=== PATIENT | female | born 1940 | race Caucasian/White ===

== ENCOUNTER 2017-08-17 10:01 | Inpatient (IN) | payer OTHER, BC ==
[~2017-08-17] VITALS: Ht 154.9 cm; Wt 72.1 kg
[~2017-08-17 10:01] MED LIST: ACTOS30 MG; ACTOS30 MG PO; ASPIR 8181 M1 PO; ASPIR-LOW81 MG PO; ATENOLOL50 MG PO; AZOPT 1% O200 DROP/1 BOTH EYES; CYCLOBENZAPRINE10 MG PO; ENDOCET 5-3251 EACH PO; GLIMEPIRIDE1 MG PO; GLIPIZIDE PO; GLIPIZIDE XL5 MG PO; GLIPIZIDE5 MG PO; GLUCOPHAGE1000 MG PO; HYDROCHLOROTH12.5 M2 PO; HYDROCHLOROTHIA25 MG PO; HYDROCHLOROTHIA50 MG PO; JANUMET XR 50-1 EAC1 PO; LISINOPRIL20 MG PO; METFORMIN HCL500 MG PO; MICRO-K8 ME1 PO; POTASSIUM CHLOR8 ME2 PO; PRAVACHOL20 MG PO; PRAVACHOL40 MG PO; PRINIVIL10 MG PO; RELAFEN500 M1 PO; TENORMIN50 MG PO; TYLENOL EXTRA500 MG PO; XALATAN2.5 ML BOTH EYES; XANAX0.5 MG PO; ZANTAC150 MG PO; ZESTRIL,PRINIVI10 MG PO
[2017-08-17 11:10] LABS: BASOPHIL (%) 0.2 % (0-1); EOSINOPHIL (%) 0.5 % (0-5); EOSINOPHIL COUNT 0.1 K/uL (0-0.3); HEMOGLOBIN 12.9 G/DL (11.9-15.5); IMMATURE GRANULOCYTE (%) 0.3 % (0.0-0.7); MCH 28.7 PG (29.0-34.0); MCHC 33.1 G/DL (30.0-36.0); MCV 86.9 FL (83-99); MONOCYTE (%) 3.5 % (3-12); MONOCYTE COUNT 0.4 K/uL (0-0.8); NEUTROPHIL (%) 86.5 % (45-76); NEUTROPHIL COUNT 9.3 K/uL (1.8-6.4); PLATELET COUNT 359 K/uL (156-360); RBC DIS.WIDTH-CV 12.8 % (11.8-14.6); RBC DIS.WIDTH-SD 39.7 % (39-53); RED BLOOD COUNT 4.49 M/uL (3.80-5.20); WHITE BLOOD COUNT 10.7 K/uL (4.1-10.2)
[2017-08-17 11:39] LABS: INTER. NORMALIZED RATIO 1.1
[2017-08-17 11:41] LABS: PTT 27.2 SEC (25-37)
[2017-08-17 11:48] LABS: ALBUMIN 4.1 g/dL (3.2-4.8)
[2017-08-17 11:49] LABS: CHLORIDE 99 mEq/L (99-109); SODIUM 136 mEq/L (136-147)
[2017-08-17 11:51] LABS: GLUCOSE 172 mg/dL (70-99); TOTAL PROTEIN 6.7 g/dL (6.4-8.3)
[2017-08-17 11:53] LABS: TOTAL BILIRUBIN 0.3 mg/dL (0.0-1.0)
[2017-08-17 11:54] LABS: TROP-I INTERPRETATION NEGATIVE; TROPONIN-I 0.03 ng/mL (0.0-0.30)
[2017-08-17 11:55] LABS: ALKALINE PHOSPHATASE 54 IU/L (3-129); CREATININE 0.8 mg/dL (0.6-1.3); GFR ESTIMATE (CALCULATED) > 59 mL/min/
[2017-08-17 11:56] LABS: AST (GOT) 17 IU/L (2-34); UREA NITROGEN (BUN) 13 mg/dL (9-23)
[2017-08-17 11:58] LABS: ALT (GPT) 21 IU/L (3-49)
[2017-08-17 12:43] LABS: APPEARANCE CLEAR ((CLEAR)); BILIRUBIN NEGATIVE; BLOOD NEGATIVE; COLOR YELLOW ((YELLOW)); GLUCOSE (STRIP) NEGATIVE; KETONES 5; LEUKOCYTES NEGATIVE; NITRITE NEGATIVE; PROTEIN (STRIP) 30; SPECIFIC GRAVITY 1.017 (1.000-1.030); UCUL ADDED? NO; UROBILINOGEN 0.2 MG/DL (0.2-1.0)
[2017-08-17] MEDS ORDERED: POTASSIUM CHLOR8 ME3 PO (17:08)
[2017-08-17] MEDS ORDERED: PRAVASTATIN SOD40 MG PO (17:08)
[2017-08-17] MEDS ORDERED: LISINOPRIL20 MG PO (17:08)
[2017-08-17] MEDS ORDERED: ATENOLOL50 MG PO (17:09)
[2017-08-17] MEDS ORDERED: HYDROCHLOROTHIA25 MG PO (17:09)
[2017-08-17] MEDS ORDERED: LATANOPROST2.5 ML BOTH EYES (17:11)
[2017-08-17] MEDS ORDERED: DORZOLAMIDE HCL10 ML BOTH EYES (17:11)
[2017-08-17] MEDS ORDERED: GLIMEPIRIDE1 MG PO (17:14)
[2017-08-18] VITALS (8 sets, daily range): BP systolic 133–191; BP diastolic 63–84
[2017-08-18 13:06] LABS: ALBUMIN 3.5 G/DL (3.2-4.8); ALKALINE PHOSPHATASE 42 IU/L (3-129); ALT (GPT) 19 IU/L (3-49); AST (GOT) 18 IU/L (2-34); DIRECT BILIRUBIN 0.1 mg/dL (0.0-0.3); TOTAL BILIRUBIN 0.5 MG/DL (0.0-1.0); TOTAL PROTEIN 5.7 G/DL (6.4-8.3)
[2017-08-18 13:46] LABS: AMYLASE 21 IU/L (1-118); LIPASE 18 U/L (1.0-51.0)
[2017-08-19] VITALS (7 sets, daily range): BP systolic 134–192; BP diastolic 64–84
[2017-08-20] VITALS (7 sets, daily range): BP systolic 152–186; BP diastolic 62–76
[2017-08-20 20:57] LABS: HIGH-SENS C-REACTIVE PROTEIN 0.62 MG/DL (0.02-0.20)
[2017-08-21] VITALS (8 sets, daily range): BP systolic 141–173; BP diastolic 64–96
[2017-08-22 02:35] VITALS: BP 147/68
[2017-08-22 07:30] VITALS: BP 163/72
[2017-08-22 12:00] VITALS: BP 170/76
== END 2017-08-22 12:52 | disposition home health service (06) | DRG 948 ==
LOC: EME 10:01 → 3EAST 15:18 → EDOF 15:18 → ENRESERV 15:47 → CANRESERV 17:20 → ENRESERV 17:20 → EDOF 08-18 00:26 → 3EAST 08-18 01:06
PROVIDERS: Emergency Medicine; Internal Medicine; Psychiatry & Neurology Neurology
DX: R41.82 Altered mental status, unspecified (principal); R47.81 Slurred speech; R51 Headache; I16.0 Hypertensive urgency; D32.0 Benign neoplasm of cerebral meninges; F03.90 Unspecified dementia, unspecified severity, without behavioral disturbance, psychotic disturbance, mood disturbance, and anxiety; I10 Essential (primary) hypertension; E11.9 Type 2 diabetes mellitus without complications; K76.0 Fatty (change of) liver, not elsewhere classified; K80.20 Calculus of gallbladder without cholecystitis without obstruction; E78.5 Hyperlipidemia, unspecified; K21.9 Gastro-esophageal reflux disease without esophagitis; Z83.3 Family history of diabetes mellitus; G89.29 Other chronic pain; M19.90 Unspecified osteoarthritis, unspecified site
CPT/HCPCS: 70450; 70551; 71045; 76705; 80053; 80076; 81003; 82150; 82948; 83605; 83690; 84484; 85025; 85610; 85651; 85730; 86141; 87040; 87502; 93005; 95819; 99281; 99285; J0360; J1815; J2405; J2543; J3370

== ENCOUNTER 2017-10-01 11:23 | Day surgery (SDC) | payer OTHER ==
[~2017-10-01] VITALS: Ht 154.9 cm; Wt 59.9 kg
[~2017-10-01 11:23] MED LIST changes: +DORZOLAMIDE HCL10 ML BOTH EYES; +LATANOPROST2.5 ML BOTH EYES; +POTASSIUM CHLOR8 ME3 PO; +PRAVASTATIN SOD40 MG PO
[2017-10-01] MEDS ORDERED: ASPIR 8181 M1 PO (12:06)
[2017-10-01] MEDS ORDERED: JANUMET 50/11 TABLET PO (12:07)
[2017-10-01 12:08] VITALS: BP 159/73
[2017-10-01] MEDS ORDERED: COLACE100 MG PO (18:52)
[2017-10-01] MEDS ORDERED: NORCO 5/3251 TABLET PO (18:52)
[2017-10-01 20:54] VITALS: BP 179/77
== END 2017-10-01 21:30 | disposition home or self-care (01) ==
LOC: SDC 11:23
PROVIDERS: Thoracic Surgery (Cardiothoracic Vascular Surgery)
PROC: 0FT44ZZ Resection of Gallbladder, Percutaneous Endoscopic Approach (ICD-10-PCS; principal; 2017-10-01)
DX: K80.10 Calculus of gallbladder with chronic cholecystitis without obstruction (principal); I10 Essential (primary) hypertension; E11.9 Type 2 diabetes mellitus without complications; Z86.73 Personal history of transient ischemic attack (TIA), and cerebral infarction without residual deficits; K21.9 Gastro-esophageal reflux disease without esophagitis; Z79.84 Long term (current) use of oral hypoglycemic drugs
CPT/HCPCS: 82948; 85610; 88304; J0330; J0360; J0690; J1170; J1885; J2405; J2765; J3010